=== PATIENT | female | born 1980 | race Caucasian/White ===

== ENCOUNTER → 2016-07-25 | Outpatient (CLI) | payer OTHER ==
[~2016-07-25] MED LIST: OFLO0.3S OP; PRED1SUS3 OPL
--- NOTE | 2016-07-25 15:23 | DIAGNOSTIC IMAGING REPORT ---
KUB CLINICAL HISTORY: NEPHROLITHIASIS nephrocalcinosis COMPARISON STUDY: 09/04/2015 FINDINGS: Unchanging tiny microcalcification lower pole left kidney. Renal and psoas shows otherwise are unremarkable. There are no significant paravertebral calcifications. Unremarkable and unchanged pelvic vascular calcifications. Nonobstructive bowel pattern. IMPRESSION: Punctate nonobstructing calcification lower pole left kidney. 2. No change from the prior study. Electronically signed by: Kevin Abbott M.D. 07/25/2016 3:21 PM Dictated Date/Time: 07/25/2016 3:20 PM
== END | disposition home or self-care (01) ==
LOC: C.RAD 14:56
PROVIDERS: ATTEND Urology
DX: N20.0 Calculus of kidney (principal)

== ENCOUNTER → 2016-12-24 | Outpatient (CLI) | payer OTHER ==
[2016-12-27 03:42] LABS: CHLAMYDIA TRACH RNA*** DETECTED (NOT DETECTED); GC (NEIS GONORRHOEAE)RNA** NOT DETECTED (NOT DETECTED)
== END | disposition home or self-care (01) ==
LOC: C.LAB1850 15:32
PROVIDERS: ATTEND Obstetrics & Gynecology
DX: Z11.3 Encounter for screening for infections with a predominantly sexual mode of transmission (principal)

== ENCOUNTER → 2016-12-24 | Outpatient (CLI) | payer OTHER | END | disposition home or self-care (01) | LOC: C.PAPS 09:37 | PROVIDERS: ATTEND Obstetrics & Gynecology | DX: Z12.4 Encounter for screening for malignant neoplasm of cervix (principal) ==

== ENCOUNTER → 2017-02-04 | Outpatient (CLI) | payer OTHER ==
[2017-02-09 07:06] LABS: CHLAMYDIA TRACH RNA*** NOT DETECTED (NOT DETECTED); GC (NEIS GONORRHOEAE)RNA** NOT DETECTED (NOT DETECTED); TRICHOMONAS VAGINALIS RNA** NOT DETECTED (NOT DETECTED)
== END | disposition home or self-care (01) ==
LOC: C.LABSPEC 17:30
PROVIDERS: ATTEND Physician Assistant
DX: A74.9 Chlamydial infection, unspecified (principal)

== ENCOUNTER → 2017-04-13 | Outpatient (CLI) | payer OTHER ==
[2017-04-13 18:31] LABS: HEP C IGG 13 YRS+OLDER_RFLX NEG (NEG)
== END | disposition home or self-care (01) ==
LOC: C.LAB1850 16:01
PROVIDERS: ATTEND Physician Assistant
DX: Z11.3 Encounter for screening for infections with a predominantly sexual mode of transmission (principal)

== ENCOUNTER 2017-04-24 17:29 | Emergency (ER) | payer OTHER ==
[~2017-04-24] VITALS: Ht 167.6 cm; Wt 82.1 kg
[2017-04-24 17:35] VITALS: BP 130/84; PULSE 77; TEMP 36.7; O2SAT 98; Ht 167.6 cm; Wt 82.1 kg
--- NOTE | 2017-04-24 17:57 | EMERGENCY ROOM VISIT NOTE ---
History First contact with patient: 17:45 Chief Complaint: FACIAL PAIN/INJURY Stated Complaint: CONTUSION TO RT EYEBROW-WC History of Present Illness The patient is a 36 year old female who presents to the Emergency Room via private vehicle with complaints of "contusion to Right elbow". 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 She states that she initially saw stars noted a brief period of blackness in her vision but she did not fall to the ground nor lost consciousness. She states that since that time she has had pain in the superior right eyebrow region rated as a 2/10. She notes swelling to this region. She states this occurred around 1700 hrs. Her tetanus is not up-to- date. There has been no nausea, vomiting. Review of Systems A complete 6-point Review of Systems was discussed with the patient, with pertinent positives and negatives listed in the History of Present Illness. All remaining Review of Systems questions can be considered negative unless otherwise specified. Past Medical/Surgical History Medical Problems: (1) Asthma Family History Kidney stone Social History Smoking Status: Never Smoker Marital Status: other Housing Status: lives with family Occupation Status: employed Current/Historical Medications Scheduled Ofloxacin (Oph) (Ocuflox Oph Soln), 1-2 DROPS OP BID Prednisolone Acetate (Ophth) (Pred Forte 1% Oph), 1 DROPS OPL QID Physical Exam Vital Signs Date Time Temp Pulse Resp B/P (MAP) Pulse Ox O2 Delivery O2 Flow Rate FiO2 //18 17:35 36.7 77 18 130/84 98 Room Air Physical Exam VITAL SIGNS - Vital signs and nursing notes were reviewed. Stable. GENERAL - 36-year-old female appearing her stated age. Communicates well with provider and answers questions appropriately. SKIN - Gross examination of the entire body surface demonstrates no lacerations to the body surface. 2 small punctate regions of abrasion noted to the patient' s right superior eyebrow region. Minimal dry blood noted. HEAD - Normocephalic, Atraumatic. No Fonseca's Sign or Raccoon's Eyes. No depressed skull fractures palpable. There is tenderness overlying the superior right eyebrow small edema noted. EYES - PERRL with EOMI bilaterally. Without subconjunctival hemorrhage. Bulbar conjunctiva pink and moist with no injection. EARS - No deformities of external structures noted on gross examination bilaterally. No blood from the canals. NEUROLOGIC - Cranial nerves II through XII grossly intact. Sensory intact to light touch throughout. Medical Decision & Procedures Medications Administered Medications (Trade) Dose Ordered Sig/Katy Route Start Time Stop Time Status Last Admin Dose Admin Diphtheria/ Pertussis/Tetanus Vacc (Adacel Inj) 0.5 ml ONCE ONCE IM. 04/24/17 18:00 04/24/17 18:01 DC 04/24/17 18:01 0.5 ML Medical Decision Patient was seen and evaluated as above. She presents to us today status post injury to the right upper eyebrow. She is nontoxic on exam. There is tenderness overlying this region. Small break in the skin that does not need sutured however given her tetanus status being not up-to-date this was updated. Ice packs were applied. She appears stable for outpatient management. She was offered a CT scan of the head, but after discussing benefits versus risks this was respectfully declined. I do not suspect any acute intracranial injury. She is informed that if a headache would persist she may have a small concussion. She is to follow with the approved workers compensation individual. She is to return with worsening. She was educated upon management , educated upon worrisome symptoms which to return, had questions answered prior to discharge, and was discharged home in good condition. In the evaluation and treatment of this patient, the following differential diagnoses were considered: Concussion, Contrecoup Injury, Brain Tumor, Depression, Encephalitis, Hypothyroidism, Meningitis, CVA, TIA, Migraine, Cluster Headache, Intracranial Abnormality, Intracranial Hemorrhage, Subdural Hematoma, Subarachnoid Hemorrhage, Hydrocephalus. Impression Primary Impression: Facial contusion Departure Information Dispostion Home / Self-Care Condition GOOD Referrals Pro,Sumit Archuleta M.D. (PCP) Patient Instructions My [facility] Additional Instructions You have been treated in the Emergency Department for a facial injury. For pain control, you can use the following [id number]-njldugf medicines (if >12 yo): - Regular strength (325mg/tab) Tylenol (acetaminophen) 2 tabs every 4-6 hours as needed. Do not exceed 12 tablets in a 24 hour period. Avoid taking more than 3 grams (3000 mg) of Tylenol per day. This includes any other sources of acetaminophen you may take on a regular basis. - Regular strength (200 mg/tab) Advil (ibuprofen) 1-2 tabs every 4-6 hours as needed. Do not exceed a dose of 3200 mg per day. You should schedule a follow-up appointment in 2-3 days with your Primary Care Provider and approved workers comp doctor Return to the Emergency Department if your current symptoms worsen despite treatment course outlined above, or if you develop any of the following symptoms : intractable pain despite aforementioned treatment course, visual disturbances , loss of vision, unilateral weakness or facial drooping, slurring of speech, loss of coordination, or loss of consciousness.
[2017-04-24] MEDS ORDERED: DIPHTHERIA/TETANUS/PERTUSSIS 0.5 ML SYR/VIAL IM. ONE (18:00)
== END 2017-04-24 18:00 | disposition home or self-care (01) ==
LOC: C.EDB 17:30 → C.EDD 18:00
DX: S00.83XA Contusion of other part of head, initial encounter (principal); W22.8XXA Striking against or struck by other objects, initial encounter; J45.909 Unspecified asthma, uncomplicated; Y99.0 Civilian activity done for income or pay; Z23 Encounter for immunization

== ENCOUNTER → 2017-04-29 | Outpatient (CLI) | payer OTHER ==
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
== END | disposition home or self-care (01) ==
LOC: C.RAD1850 12:24
PROVIDERS: ATTEND Nurse Practitioner Family
DX: H57.11 Ocular pain, right eye (principal); S09.90XA Unspecified injury of head, initial encounter; X58.XXXA Exposure to other specified factors, initial encounter

== ENCOUNTER → 2017-09-23 | Outpatient (CLI) | payer OTHER ==
[~2017-09-23] MED LIST changes: +ACET-1256 PO; +IBUP-1105 PO; -OFLO0.3S OP; -PRED1SUS3 OPL
[2017-09-23 09:57] LABS: ALBUMIN 3.8 gm/dl (3.4-5.0); ALKALINE PHOSPHATASE 57 U/L (45-117); ALT/SGPT 16 U/L (12-78); AST/SGOT 19 U/L (15-37); BLOOD UREA NITROGEN 11 mg/dl (7-18); CALCIUM 8.7 mg/dl (8.5-10.1); CARBON DIOXIDE 29 mmol/L (21-32); CHOLESTEROL 159 mg/dl (0-200); CREATININE 0.77 mg/dl (0.60-1.20); GLUCOSE 90 mg/dl (70-99); LDL CHOLESTEROL CALCULATED 93 mg/dl; SODIUM 140 mmol/L (136-145); TOTAL PROTEIN 7.3 gm/dl (6.4-8.2)
== END | disposition home or self-care (01) ==
LOC: C.LAB 08:47
PROVIDERS: ATTEND Physician Assistant
DX: E78.5 Hyperlipidemia, unspecified (principal)

== ENCOUNTER 2021-04-29 07:55 | Inpatient (IN) ==
[2021-04-29] MEDS ORDERED: OXYTOCIN 30 UNITS/500 ML BAG IV PRN ×3 (08:55→22:53)
[2021-04-29 09:25] LABS: Hematocrit (blood only) 36.9 % (37-47); Hemoglobin 12.8 g/dL (12.0-16.0); Mean Corpuscular Hemoglobin 32.5 pg (25-34); Mean Corpuscular Hgb Conc 34.7 g/dL (32-36); Mean Corpuscular Volume 93.7 fL (80-100); Mean Platelet Volume 8.9 fL (7.4-10.4); Platelet Count 229 K/uL (130-400); RDW Coefficient of Variation 13.2 % (11.5-14.5); RDW Standard Deviation 45.2 fL (36.4-46.3); Red Blood Count 3.94 M/uL (4.2-5.4); White Blood Count 9.37 K/uL (4.8-10.8)
[2021-04-29] MEDS: LACTATED RINGER'S 1,000 ML IV PRN ×3 (09:49→18:01)
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
--- NOTE | 2021-04-29 15:38 | Labor Progress Brief Note ---
Date of Service April 29, 2021 Subjective Doing well. Feeling ctx. FHT Cat 1 [place] Q 2 SVE 3/50/-3 AROM clear fluid. Assessment & Plan Admission and Anticipated Discharge Date Admission Date: April 29, 2021 Results & Data ([facility]) Vital Signs (Past 12 Hours) Vital Signs Temp Pulse Resp BP 04/29/21 14:49 100 H 115/72 04/29/21 13:25 93 H 130/73 04/29/21 12:18 104 H 124/85 04/29/21 12:12 36.5 C 04/29/21 11:02 95 H 121/79 04/29/21 09:58 100 H 123/75 04/29/21 08:15 36.6 C 04/29/21 08:04 115 H 121/70 Coding Level of Care Code None
[2021-04-29] MEDS ORDERED: ePHEDrine sulfate 50 MG/ML AMP ONE (17:08)
[2021-04-29] MEDS ORDERED: fentaNYL citrate 100 MCG/2 ML VIAL ONE (17:08)
[2021-04-29] MEDS ORDERED: SODIUM CHLORIDE 0.9% INJ 10 ML VIAL ONE (17:08)
[2021-04-29] MEDS ORDERED: BUPIVACAINE 0.25% 30 ML VIAL ONE (17:08)
[2021-04-29] MEDS ORDERED: fentaNYL 2MCG/ML ROPIVACAINE 1.25MG/ML 100 ML BAG EPI ONE (17:09)
[2021-04-29] MEDS ORDERED: ePHEDrine sulfate 50 MG/ML AMP IV PRN (17:30)
[2021-04-29] MEDS ORDERED: NALOXONE HCL 0.4 MG/1 ML VIAL/CARP IV PRN (17:30)
[2021-04-29] MEDS ORDERED: diphenhydrAMINE 50 MG/ML VIAL IV PRN (17:30)
[2021-04-29] MEDS ORDERED: fentaNYL 2MCG/ML ROPIVACAINE 1.25MG/ML 100 ML BAG EPI PRN (17:30)
[2021-04-29] MEDS ORDERED: METOCLOPRAMIDE HCL 20 MG in SODIUM CHLORIDE 0.9% 50 ML IV PRN (17:30)
[2021-04-29] MEDS ORDERED: NALBUPHINE HCL INJ 10 MG/ML AMP IV PRN (17:30)
[2021-04-29] MEDS ORDERED: PROMETHAZINE HCL 25 MG in SODIUM CHLORIDE 0.9% 50 ML IV PRN (17:30)
[2021-04-29] MEDS ORDERED: ONDANSETRON INJ 2 MG/ML 2 ML VIAL IV PRN (17:30)
[2021-04-29] MEDS ORDERED: NALOXONE HCL 1 MG in SODIUM CHLORIDE 0.9% 1000ML 1,000 ML IV PRN (17:30)
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
--- NOTE | 2021-04-29 18:35 | Labor Progress Brief Note ---
Date of Service April 29, 2021 Subjective Comfortable with epidural. FHT Cat 1 [place] Q 2 SVE 4/80/-2 Continue labor. Assessment & Plan Admission and Anticipated Discharge Date Admission Date: April 29, 2021 [facility] Vital Signs (Past 12 Hours) Vital Signs Temp Pulse Resp BP Pulse Ox 04/29/21 18:26 84 96 04/29/21 18:21 85 91 04/29/21 18:16 95 H 96 04/29/21 18:14 86 106/71 93 04/29/21 18:13 76 118/72 04/29/21 18:11 83 98 04/29/21 18:07 85 91/55 L 92 04/29/21 18:06 84 95 04/29/21 18:01 94 H 115/67 96 04/29/21 17:59 88 113/68 04/29/21 17:57 100 H 132/76 04/29/21 17:56 93 H 97 04/29/21 17:55 94 H 111/75 04/29/21 17:53 87 107/67 04/29/21 17:51 95 H 128/71 96 04/29/21 17:49 95 H 136/81 04/29/21 17:47 102 H 149/76 H 04/29/21 17:46 103 H 96 04/29/21 17:45 122 H 147/90 H 04/29/21 17:41 107 H 97 04/29/21 17:36 112 H 99 04/29/21 17:26 93 H 97 04/29/21 16:50 36.7 C 04/29/21 16:39 95 H 116/72 04/29/21 15:47 100 H 135/75 04/29/21 14:49 100 H 115/72 04/29/21 14:40 36.6 C 20 04/29/21 13:25 93 H 130/73 04/29/21 12:18 104 H 124/85 04/29/21 12:12 36.5 C 20 04/29/21 11:02 95 H 121/79 04/29/21 09:58 100 H 123/75 04/29/21 08:15 36.6 C 20 04/29/21 08:04 115 H 121/70 Coding Level of Care Code None
--- NOTE | 2021-04-29 20:55 | Delivery Summary ---
Vaginal Delivery Summary Date of Service April 29, 2021 Vaginal Delivery Summary [facility] Vaginal Delivery Summary: Pre-delivery diagnoses: 40yo @ 39 0/7, IOL for h/o fast delivery, AMA, hypothyroid Post-delivery diagnoses: same Procedure: spontaneous vaginal delivery Surgeon: Ary Strickland DO Complications: none Findings: Viable female . Apgars: 8/9 . Weight pending, please see nursery records. Estimated blood loss: 300ml Description of delivery: The patient progressed to complete with epidural anesthesia. She then pushed once. She spontaneously vaginally delivered a viable from the cephalic presentation. The head delivered in MARIE position. The anterior shoulder delivered, followed by the posterior shoulder, followed by the body. No nuchal cord noted. The baby was placed on mother's abdomen and a spontaneous cry was heard. Delayed cord clamping was employed, and the cord was doubly clamped and cut. A segment was retained for cord gases. Cord blood was obtained. The placenta was delivered spontaneously intact with a 3-vessel cord. The uterus and vagina were swept of clots and debris. IV pitocin was given. The uterus became firm. The cervix, vagina, and perineum were inspected and no lacerations were noted. Excellent hemostasis was observed. The mother and baby are recovering in stable and good condition in the room. Sponge and instrument counts were correct x 2. Ary Strickland DO [facility] Delivery Charge Vaginal Delivery Codes: 17798 global code for the antepartum, delivery, and post- Delivery Type Details: [facility]
[2021-04-29] MEDS ORDERED: PRENATAL VITAMIN 1 TAB PO SCH (21:00)
--- NOTE | 2021-04-29 21:51 | Anesthesia Procedure Note ---
Date of Service April 29, 2021 Anesthesia Post Epidural Note Vital Signs Vital Signs: Temp Pulse Resp BP Pulse Ox 37 C 106 H 18 114/61 96 04/29/21 19:10 04/29/21 21:47 04/29/21 19:10 04/29/21 21:47 04/29/21 20:41 Notes Mental Status: alert / awake / arousable and participated in evaluation Nausea / Vomiting: adequately controlled Pain: adequately controlled Airway Patency, RR, SpO2: stable & adequate BP & HR: stable & adequate Hydration State: stable & adequate Neuraxial Anesthesia: was administered and sensory block is resolving Anesthetic Complications: no major complications apparent and Pt Satisfied with anesthetic care Epidural: Removed without complications and With tip intact Notes: Epidural site clean, dry and intact. No signs of edema, erythema or bruising at insertion site. Pt instructed to request anesthesia if she has residual lower extremity numbness or if she develops lower extremity pain or weakness, back pain or headache.
[2021-04-29] MEDS ORDERED: BENZOCAINE 20% AER SPR 82.5 GM CAN EXT PRN (22:53)
[2021-04-29] MEDS ORDERED: HYDROCORTISONE ACETATE 25 MG SUPP PR PRN (22:53)
[2021-04-29] MEDS ORDERED: DIPHTHERIA/TETANUS/PERTUSSIS 0.5 ML SYR/VIAL IM ONE (22:53)
[2021-04-29] MEDS ORDERED: IBUPROFEN 600 MG TAB PO ONE (22:55)
[2021-04-29] MEDS ORDERED: SODIUM CHLORIDE 0.9% 250 ML IV PRN (23:41)
[2021-04-30] MEDS: IBUPROFEN 600 MG TAB PO PRN ×4 (04:19→20:11)
[2021-04-30] MEDS: ACETAMINOPHEN 325 MG TAB PO PRN ×2 (06:16→18:17)
[2021-04-30] MEDS: LEVOTHYROXINE SODIUM 100 MCG TABLET PO SCH (06:17)
[2021-04-30 07:06] LABS: Hematocrit (blood only) 34.4 % (37-47); Hemoglobin 11.7 g/dL (12.0-16.0)
[2021-04-30] MEDS ORDERED: PRENATAL VITAMIN 1 TAB PO SCH (08:00)
--- NOTE | 2021-04-30 08:22 | Obstetrical Progress Note ---
Date of Service April 30, 2021 Assessment & Plan (1) Encounter for care and examination after delivery: Plan: 40yo PPD 1 s/p at 39 weeks complicated by AMA, hypothyroidism. -Continue routine care -Vitals reviewed- afebrile -GBS negative -Encourage ambulation, regular diet -Pain control with ibuprofen, acetaminophen PRN -Encourage -Hgb 11.7, stable -f/u in 6 weeks with OB after discharge; may go home tonight if wishes to do so (2) Hypothyroidism affecting : Admission and Anticipated Discharge Date Admission Date: April 29, 2021 Supervising Physician Co-Signing Physician Notes Resident Physician Supervision Note: I interviewed and examined the patient. Discussed with Dr. White and agree with findings and plan as documented in the note. Any exceptions or clarifications are listed here: PPD#1 doing well, possible DC home tonight. Documented By: Ary Strickland, DO Subjective Ambulation: yes Voiding: yes Passing Gas: not yet BM: not yet Diet Tolerance: regular w/o N/V Lochia: small Feeding Type: breast Current Pain Level(1-10): 6 Review of Systems Review of Systems: Denies fevers/chills. Denies dyspnea, cough. Denies chest pain. Denies breast pain or discharge. Denies dysuria. Denies headache. +mild pain at epidural site Physical Exam Physical Exam: General: Alert, oriented, no acute distress Cardiac: Regular rate and rhythm. No murmurs appreciated. Respiratory: Clear to auscultation b/l with good air flow entry, symmetric chest rise and fall. No wheezes or crackles. No increased work of breathing or accessory muscle use Abdomen: Soft, appropriate post tenderness, nondistended. Fundus firm and palpable at 1 cm above umbilicus. No guarding or rebound. Skin: No rashes or lesions Extremities: Warm, dry, well-perfused. No lower extremity edema, erythema or swelling. No calf tenderness. Results & Data ([facility]) Vital Signs (Past 12 Hours) Vital Signs Temp Pulse Pulse Resp BP BP Pulse Ox 04/30/21 04:15 36.4 C L 93 H 16 131/83 04/29/21 23:25 36.8 C 99 H 18 114/65 04/29/21 22:47 106 H 115/64 04/29/21 22:32 104 H 102/62 04/29/21 22:17 111 H 121/66 04/29/21 22:02 103 H 121/70 04/29/21 21:47 106 H 114/61 04/29/21 21:32 107 H 128/69 04/29/21 21:17 107 H 128/69 04/29/21 21:02 108 H 133/80 04/29/21 20:47 109 H 131/60 04/29/21 20:45 112 H 129/61 04/29/21 20:41 114 H 96 04/29/21 20:36 109 H 99 04/29/21 20:33 114 H 93 04/29/21 20:31 125 H 65 L 04/29/21 20:26 117 H 100 04/29/21 20:21 111 H 99 Resident Activity Tracking Resident Involvement: Resident Care Provided Care Provided: OB Delivery
[2021-04-30] MEDS: DOCUSATE SODIUM 100 MG CAP PO SCH ×2 (08:38→20:09)
[2021-04-30] MEDS: oxyCODONE/ACETAMINOPHEN 5mg/325mg TAB PO PRN ×2 (10:25→20:10)
[2021-04-30] MEDS ORDERED: bisacodyL 5 MG TABEC PO SCH (20:00)
[2021-05-01] MEDS ORDERED: bisacodyL 10 MG SUPP PR PRN
[2021-05-01] MEDS: oxyCODONE/ACETAMINOPHEN 5mg/325mg TAB PO PRN ×2 (00:01→06:33)
[2021-05-01] MEDS: IBUPROFEN 600 MG TAB PO PRN ×2 (00:01→06:33)
[2021-05-01] MEDS: LEVOTHYROXINE SODIUM 100 MCG TABLET PO SCH (06:33)
--- NOTE | 2021-05-01 07:08 | Obstetrical Progress Note ---
Date of Service May 01, 2021 Assessment & Plan (1) Encounter for care and examination after delivery: Plan: 40yo PPD 2 s/p at 39 weeks complicated by AMA, hypothyroidism. -Continue routine care -Vitals reviewed- afebrile -GBS negative -Encourage ambulation, regular diet -Pain control with ibuprofen, acetaminophen PRN -Encourage -Hgb 11.7 (04/30), stable -watch for any skin changes or increased pain at LUQ -f/u in 6 weeks with OB after discharge (2) Hypothyroidism affecting : Admission and Anticipated Discharge Date Admission Date: April 29, 2021 Supervising Physician Co-Signing Physician Notes Patient seen and evaluated and agree with the above findings and plan. Stable for discharge Subjective Ambulation: yes Voiding: yes Passing Gas: yes BM: not yet Diet Tolerance: regular w/o N/V Lochia: small Feeding Type: breast Current Pain Level(1-10): 4 Review of Systems Review of Systems: Denies fevers/chills. Denies dyspnea, cough. Denies chest pain. Denies breast pain or discharge. Denies dysuria. Denies headache. +mild pain LUQ abdomen, sensitive when she touches skin +mild lower back soreness Physical Exam Physical Exam: General: Alert, oriented, no acute distress Cardiac: Regular rate and rhythm. No murmurs appreciated. Respiratory: Clear to auscultation b/l with good air flow entry, symmetric chest rise and fall. No wheezes or crackles. No increased work of breathing or accessory muscle use Abdomen: Soft, appropriate post tenderness, nondistended. Fundus firm and palpable at 1 cm below umbilicus. No guarding or rebound. Skin: No rashes or lesions Extremities: Warm, dry, well-perfused. No lower extremity edema, erythema or swelling. No calf tenderness. Results & Data ([facility]) Vital Signs (Past 12 Hours) Vital Signs Temp Pulse Resp BP 04/30/21 23:10 36.7 C 95 H 18 104/60 04/30/21 19:45 36.5 C 79 18 106/68 Resident Activity Tracking Resident Involvement: Resident Care Provided Care Provided: OB Delivery
== END 2021-05-01 10:45 | disposition home or self-care (01) | DRG 807 ==
LOC: 4S1 07:55 → 4S2 23:39